=== PATIENT | female | born 1955 | race Caucasian/White ===

== ENCOUNTER 2023-10-07 09:02 | Outpatient (REF) | payer OTHER, SELFPAY ==
[2023-10-07 09:25] LABS: MANUAL DIFF FLAG NO
[2023-10-07 09:54] LABS: Basophils Percent Auto 0.7 % (0-2); Eosinophils Absolute Auto 0.2 X10*3/uL (0.0-0.4); Eosinophils Percent Auto 3.4 % (0-4); Hematocrit 41.7 % (37.0-47.0); Imm Gran Abs Auto 0.02 X10*3/uL (0.00-0.03); Imm Gran Pct Auto 0.3 % (0.0-0.4); Lymphocytes Absolute Auto 1.4 X10*3/uL (1.2-4.9); Lymphocytes Percent Auto 23.5 % (20-40); Mean Corpuscular HGB Conc 33.6 g/dl (31.0-35.0); Mean Corpuscular Hemoglobin 29.4 pg (27.0-33.0); Mean Corpuscular Volume 87.6 fL (80.0-98.0); Mean Platelet Volume 10.4 fL (9.4-12.3); Monocytes Absolute Auto 0.5 X10*3/uL (0.1-1.2); Monocytes Percent Auto 8.8 % (2-11); Neutrophils Absolute Auto 3.7 x10*3/uL (2.0-8.3); Neutrophils Percent Auto 63.3 % (45-73); Platelet Count 223 X10*3/uL (160-400); Red Blood Count 4.76 X10*6/uL (4.20-5.50); Red Cell Distribution Width 13.2 % (11.0-16.0); White Blood Count 5.8 X10*3/uL (4.8-10.8)
[2023-10-07 10:52] LABS: Alanine Aminotransferase 19 U/L (0-31); Anion Gap 9 (12-20); Aspartate Amino Transferase 18 U/L (5-31); Blood Urea Nitrogen 12 mg/dL (9-16); Calcium 9.5 mg/dL (8.4-10.2); Carbon Dioxide 31 mmol/L (22-29); Chloride 106 mmol/L (96-108); Cholesterol 214 mg/dL (<200); Estimated Glomerular Filt Rate > 60; Glucose Random 94 mg/dL (60-115); HDL Cholesterol 76 mg/dL (>40); LDL Cholesterol Calculated 122 mg/dL (<100); Potassium 3.5 mmol/L (3.3-5.1); Sodium 142 mmol/L (135-145); Triglycerides 84 mg/dL (<150)
[2023-10-07 10:55] LABS: TSH reflex Free T4 0.51 uIU/mL (0.32-4.0); Vitamin D 25-OH Total 14.5 ng/mL (>30)
== END 2023-10-07 09:03 | disposition home or self-care (01) ==
LOC: HO.LAB 09:02
PROVIDERS: PCP Nurse Practitioner Family; Visit Provider Nurse Practitioner Family
DX: Z00.00 Encounter for general adult medical examination without abnormal findings (principal); E55.9 Vitamin D deficiency, unspecified; G43.909 Migraine, unspecified, not intractable, without status migrainosus; R73.01 Impaired fasting glucose
CPT/HCPCS: 36415; 80048; 80061; 82306; 84443; 84450; 84460; 85025

== ENCOUNTER 2024-11-05 09:54 | Outpatient (REF) | payer OTHER, SELFPAY ==
--- NOTE | ~2024-11-05 | US_ITS ---
CLINICAL HISTORY: LEFT SIDE - NECK MASS US neck nonvascular Comparison: None Findings: Ultrasound evaluation of the area of clinical concern left neck demonstrates bulbous cervical level II level lymph nodes with mild cortical thickening without cortical disruption. Both demonstrate central flow with fatty hilum each measuring 11 x 6 x 10 mm and 10 x 3 x 7 mm. Impression: Probable reactive cervical lymph nodes on the left in the area of clinical concern can be followed up until resolution This document has been electronically signed by: Skip Kwan MD on 11/06/2024 15:35:55
--- OUTSIDE RECORDS SUMMARY | 2024-11-05 11:01 | XMS_ITS | Patient Health Record ---
Author Organization [facility] chencho [place] Address [address] [place] [address] Care Team Providers Care Orchard Worker Name Role Phone Marilynn STERN, Jessica Primary Care Provider Santana Blakely Unavailable [phone] Allergies Allergen (clinical drug ingredient) Drug/Non Drug Allergy documented on EMR Reaction Allergy Type Onset Date Status amoxicillin Amoxicillin rash Drug Allergy Act ankit morphine Morphine vomiting Drug Allergy Active Reason For Referral No Information Medications Medication SIG (Take, Route, Fr equency, Duration) Notes Start Date End Date Status Ciclopirox 0.77 % 1 application Merchandise Presentation Manager ally Twice a day; Duration: 365 days Active Social History Tobacco Use: Social History Observation Description Date Details (start date - stop date) Never Smoker NA - NA Tobacco Use/Smoking Question Answer Notes Are you a: nonsmoker Alcohol Screen Question Answer Notes Did you have a drink contain ing alcohol in the past year? Yes How often did you have a dri nk containing alcohol in the past year? Monthly or less (1 point) Points 1 Interpretation Negative Tobacco use other than smoking: Question Answer Notes Are you an other tobacco user? No Problems Problem Type SNOMED Code ICD Code Onset Dates Problem Status W/U Status Risk Notes Problem Fungal infection of nail (288588953) Fungal infection of nail (B35.1) Active confirmed Rx management (4) Plan Of Treatment No Information Insurance Providers Payer Name Payer Address Payer Phone Subscriber Number Group Number Insured Name Patient Relationship to Insured Coverage Start Date Coverage End Date Blue Benefits [address] [address] [place] [address] [phone] [id number] Sana Saeed Self - patient is the insured Medical (General) History Medical History History ICD Code Arthritis Back,Hip,and Knee pain covid-19 Headaches/Migraines Sciatica Surgical History Surgery Date(Month/Year) 1989
--- OUTSIDE RECORDS SUMMARY | 2024-11-05 11:01 | XMS_ITS | Encounter Summary ---
Author Organization [facility] Address [address] [place] [address] Care Team Providers Care Infectious Disease Technician Name Role Phone Unavailable Primary Care Provider Unavailabl e Encounter Details Date Type Department Care Team (Latest Contact Info) Description 07/01/2024 Lab Requisition [facility] [address] [facility] [place] [address] Estefania Curtis MD [address] [address] Encounter for gynecological examination (general) (routine) without abnormal findings Social History Tobacco Use Types Packs/Day Years Used Date Smoking Tobacco: Never Assessed Comments Unknown Sex and Gender Information Value Date Recorded Sex Assigned at Not on file Legal Sex Female 5:35 PM EST Gender Identity Not on file Sexual Orientation Not on file documented as of this encounter Plan of Treatment Not on file documented as of this encounter Procedures Procedure Name Priority Date/Time Associated Diagnosis Comments PAP SMEAR Routine 06/30/2024 12:00 AM EDT Encounter for gynecological examination (general) (routine) without abnormal findings documented in this encounter Results * Pap smear (06/30/2024 12:00 AM EDT) Interpretation Negative for intraepithelial lesion or malignancy 07/05/2024 6:54 PM EDT [facility] General Categorization Negative 07/05/2024 6:54 PM EDT [facility] Other Findings Atrophy 07/05/2024 6:54 PM EDT [facility] Specimen Adequacy Satisfactory for evaluation 07/05/2024 6:54 PM EDT [facility] Pap Methodology Liquid Based Pap Test 07/05/2024 6:54 PM EDT [facility] Disclaimer The Pap test is a screening test which carries an inherent false negative rate. These test results should be correlated with the patient's clinical findings and history. This Pap test was processed using an automated screening system. Technical cytopathology services provided by [facility], at [address] [place] [address] (CLIA # [id number]/Marily Awad MD, Anvil Seating Press Operator.) 07/05/2024 6:54 PM EDT [facility] Console Pap Interpretation Reported 07/05/2024 6:54 PM T [facility] Brushing/Spatula Cervix uteri structure / Unknown 06/30/2024 07/01/2024 5:59 AM EDT us Estefania Curtis MD LAB CYTOLOGY ORDERABLES Final Result [facility] [address] [place] [address], [place] [phone] documented in this encounter Visit Diagnoses Diagnosis Encounter for gynecological examination (general) (routine) without abnormal findings documented in this encounter
--- OUTSIDE RECORDS SUMMARY | 2024-11-05 11:01 | XMS_ITS | Clinical Summary ---
Author Organization [address] Address [address] [place] [phone] Phone Care Team Providers Care City Alderman Name Role Phone Unavailable Primary Care Provider Unavailabl e Social History Tobacco Use Types Packs/Day Years Used Date Smoking Tobacco: Never Assessed Comments Unknown Sex and Gender Information Value Date Recorded Sex Assigned at Not on file Legal Sex Female 5:35 PM EST Gender Identity Not on file Sexual Orientation Not on file Plan of Treatment Health Maintenance Due Date Last Done Comments DTaP,Tdap,and Td Vaccines (1 - Tdap) 1976 Pneumococcal Vaccine: 50+ Years (1 of 1 - PCV) 09/27/2007 Zoster Vaccines (1 of 2) 09/27/2007 Colorectal Cancer Screening: Colonoscopy 01/12/2022 Hepatitis C Screening 01/12/2022 Osteoporosis Screening (Bone Density Screening) 01/12/2022 Social Influencers of Health Screening 01/12/2022 Falls Risk Assessment 2022 Depression Screening 02/11/2024 COVID-19 Vaccine ( - season) 2024 Influenza Vaccine (#1) 2024 Breast Cancer Screening 06/24/2025 06/25/19 24, 08/09/2021, 07/07/2020, Additional history exists RSV Immunization Adult Patients (1 - 1-dose 75+ series) 2032 HIB Vaccines Aged Out No longer eligi ble based on patient's age to complete this topic HPV Vaccines Aged Out No longer eligi ble based on patient's age to complete this topic Hepatitis A Vaccines Aged Out No long er eligible based on patient's age to complete this topic Hepatitis B Vaccines Aged Out No long er eligible based on patient's age to complete this topic IPV Vaccines Aged Out No longer eligi ble based on patient's age to complete this topic MMR Vaccines Aged Out No longer eligi ble based on patient's age to complete this topic Meningococcal ACWY Vaccine Aged Out N o longer eligible based on patient's age to complete this topic Meningococcal B Vaccine Aged Out No l onger eligible based on patient's age to complete this topic RSV Immunization Patients Under 20 months Aged Out No longer eligible based on patient's age to complete this topic Varicella Vaccines Aged Out No longer eligible based on patient's age to complete this topic Procedures Procedure Name Priority Date/Time Associated Diagnosis Comments [facility] SCREENING DIGITAL Routine 06/25/2023 4:33 PM EDT Encounter for screening mammogram for malignant neoplasm of breast from Last 3 Months or Most Recently Relevant to Health Maintenance Results * [facility] SCREENING DIGITAL (06/25/2023 4:33 PM EDT) Anatomical Region Laterality Modality Mammography 06/25/2023 9:08 AM EDT Narrative 06/25/2023 4:33 PM EDT [facility] Diagnostic Imaging Department [address] [place] [address] Patient: SUKI SAEED D.O.B./Age/Sex: 1955 - 67 - F Unit#: [id number] Location/Status: [facility]/REG CLI Mnemonic/Ordering Site: [facility] Ordering Physician: JESSICA SUBRAMANIAN FISH MACHINE FEEDER [facility] Screening Digital - 06/25/[address] Report Status:Signed EXAM: [facility] Screening Digital EXAM DATE AND TIME: 06/25/2023 9:25 AM HISTORY: Screening. Mother had breast carcinoma at age 75. COMPARISON: 08/09/21, 07/07/20, 06/10/18 TECHNIQUE: Bilateral digital breast tomosynthesis was performed in the CC and MLO projections. Computer aided detection with Kanbanize 3D 3.1 was employed. TISSUE DENSITY: b. There are scattered areas of fibroglandular density. FINDINGS: No suspicious masses, grouped microcalcifications, or areas of architectural distortion are seen. The skin and vascularity are unremarkable. IMPRESSION: Stable mammographic appearance of the breasts. No evidence of malignancy is seen. A negative mammogram in the presence of a clinically suspicious palpable abnormality does not preclude the possibility of malignancy or alter the indications for biopsy. BI-RADS: Category 1: Negative RECOMMENDATION(S): 1: Routine screening mammogram BILATERAL in 1 year. Dictating Physician: MALINDA TURNER MD Electronically Signed by: MALINDA TURNER MD Dic Date/Time: 06/25/23 1633 Sign date/Time: 06/25/23 1633 Procedure Note Malinda Turner MD - 09/29/2023 [facility] Diagnostic Imaging Department [address] [place] [address] Patient: SUKI SAEED./Age/Sex: 1955 - 67 - F Unit#: [id number] Location/Status: [facility] Mnemonic/Ordering Site: [facility] Ordering Physician: JESSICA SUBRAMANIAN FISH MACHINE FEEDER [facility] Screening Digital - 06/25/23 - 923 Report Status:Signed EXAM: [facility] Screening Digital EXAM DATE AND TIME: 06/25/2023 9:25 AM HISTORY: Screening. Mother had breast carcinoma at age 75. COMPARISON: 08/09/21, 07/07/20, 06/10/18 TECHNIQUE: Bilateral digital breast tomosynthesis was performed in the CCand MLO projections. Computer aided detection with Kanbanize 3D 3.1was employed. TISSUE DENSITY: b. There are scattered areas of fibroglandular density. FINDINGS: No suspicious masses, grouped microcalcifications, or areas ofarchitectural distortion are seen. The skin and vascularity are unremarkable. IMPRESSION: Stable mammographic appearance of the breasts. No evidence of malignancyis seen. A negative mammogram in the presence of a clinically suspicious palpable abnormality does not preclude the possibility of malignancy or alter the indications for biopsy. BI-RADS: Category 1: Negative RECOMMENDATION(S): 1: Routine screening mammogram BILATERAL in 1 year. Dictating Physician: MALINDA TURNER MD Electronically Signed by: MALINDA TURNER MD Dic Date/Time: 06/25/23 1633 Sign date/Time: 06/25/23 1633 Jessica Subramanian NP IMG BI PROCEDURES Final Resul t from Last 3 Months or Most Recently Relevant to Health Maintenance Insurance [employer]ORS [facility]
== END 2024-11-05 09:55 | disposition home or self-care (01) ==
LOC: HO.HMGCX 09:54
PROVIDERS: PCP Nurse Practitioner Family; Visit Provider Nurse Practitioner Family
DX: R59.0 Localized enlarged lymph nodes (principal); M50.30 Other cervical disc degeneration, unspecified cervical region
CPT/HCPCS: 76536

== ENCOUNTER → 2024-11-05 09:56 | Outpatient (BNV) | payer OTHER, SELFPAY | PROVIDERS: PCP Nurse Practitioner Family; Visit Provider Radiology Diagnostic Radiology | DX: R22.1 Localized swelling, mass and lump, neck (principal) | CPT/HCPCS: 76536 ==

== ENCOUNTER → 2024-11-19 13:01 | Outpatient (REF) | payer OTHER, SELFPAY ==
--- NOTE | 2024-11-19 13:04 | CA_ITS ---
Transthoracic Echocardiogram Patient (Last, First, Middle): Sana Saeed, Gender: F Date of : 1955 Age: 69 Procedure Date: 11/19/2024 Procedure Type: Transthoracic Echocardiogram Location: OP Height: 162.56 cm Weight: 68.95 kg BSA: 1.74 m2 Heart Rate: bpm BP: 132 / 80 mmHg Retail Service Specialist: NADIA Referring MD: Jessica SIMON Medical Director Of Hospice: Herberth Mott MD Symptoms: PALPITATIONS Study Quality: Adequate ECG Rhythm: Sinus Conclusions: - 1. Normal LV ejection fraction of 55-60% with mild LVH with grade 1 diastolic dysfunction 2. Normal cardiac valvular Dopplers 3. Upper limits of normal ascending aortic size 4. No gross pericardial effusion Findings Left Ventricle Normal left ventricular size and systolic function. There is mildly increased left ventricular wall thickness. The visually estimated ejection fraction is between 55-60%. Spectral Doppler is indicative of an impaired relaxation filling pattern. E/E prime ratio is <8, consistent with normal filling pressures. Evidence suggests grade I (mild) diastolic dysfunction. Right Ventricle Normal right ventricular cavity size and systolic function. Atria Both atria are normal in size. There is no evidence of interatrial shunt. Aortic Valve Normal aortic valve structure and function. There is no aortic valve stenosis. There is no aortic valve regurgitation. Mitral Valve Normal mitral valve structure and function. There is trace mitral valve regurgitation. There is no mitral valve stenosis. Pulmonic Valve The pulmonic valve is likely normal. There is trace pulmonic valve regurgitation. Tricuspid Valve Normal tricuspid valve structure. Tricuspid regurgitation envelope is inadequate for calculation of right ventricular systolic pressure. Normal right atrial pressure. Great Vessels The pulmonary artery was not well visualized. There is no dilatation of the ascending aorta measuring 3.50 cm. Venous The inferior vena cava is normal in size and collapses greater than 50% with inspiration. Pericardium/Pleural There is no evidence of pericardial effusion. Prior Study Comparison No prior study available for comparison. Measurements 2D Linear Measurements IVSd: 1.22 0.6-0.9/0.6-1.0 cm LVIDd: 4.61 3.9-5.3/4.2-5.9 cm LVIDd Index: 2.65 2.4-3.2/2.2-3.1 cm/m2 LVIDs: 2.80 2.0-3.6 cm LVPWd: 1.21 0.7-1.1 cm Ao Root: 3.00 2.1-3.5 cm LA Diam: 3.50 2.7-3.8/3.0-4.0 cm LAIDs Index: 2.01 1.5-2.3 cm/m2 LV Mass: 260.98 67-162/88-224 g LV Mass Index: 149.99 43-95/49-115 g/m2 LVOT Diam: 2.40 3.0+(-)1.3 cm 2D Systolic Function EF 4C: 55.40 >55% EF 2C: 60.80 >55% EF BiP: 58.60 >55% Mitral Valve MV Pk E: 0.51 MV PK A: 0.69 MV Decel Time: 338.00 E/A: 0.70 E'Lateral: 5.98 E'Medial: 4.03 E/E' Med: 12.80 E/E' Lat: 8.60 PHT: 99.00 MVA PHT: 2.22 Decel Crawford: 1.52 Aortic Valve AoV Pk Jimmy: 1.23 AoV Mn Jimmy: 0.80 AoV VTI: 0.30 AoV Pk Grad: 6.00 Aov Mn Grad: 3.00 GEGE Cont.VTI: 3.25 LVOT LVOT Pk Jimmy: 0.86 LVOT Mn Jimmy: 0.56 LVOT VTI: 0.21 LVOT Pk Grad: 3.00 LVOT Mn Grad: 2.00 LVOT Diam: 2.40 LVOT Area: 4.52 Diastolic Function MV Pk E: 0.51 MV Pk A: 0.69 E/A: 0.70 E'Medial: 4.03 E/E' Med: 12.80 E' Laterial: 5.98 E/E' Lat: 8.60 Right Ventricle TAPSE (mm): 32.30 TVS' Jimmy: 12.40 Tricuspid Valve TR Pk Jimmy: 2.26 TR Pk Grad: 20.00 Great Vessels Aorta Ao Root-2D: 3.00 2.0-3.7 cm Ao Asc: 3.50 2.1-3.4 cm Pulmonary Veins Pulm Vein S/D 0.70 Pulmonary Valve PV Pk Jimmy: 0.93 Peak PV Grad: 3.00 Updated in Other Vendor System with Status of Final Herberth Mott MD electronically signed on 11/19/2024 2:53:28 PM with status of Final
== END ==
LOC: HO.CARD 13:01
PROVIDERS: PCP Nurse Practitioner Family; Visit Provider Nurse Practitioner Family
DX: R00.2 Palpitations (principal)
CPT/HCPCS: 93246; 93306

== ENCOUNTER → 2024-11-19 13:04 | Outpatient (BNV) | payer OTHER, SELFPAY | PROVIDERS: PCP Nurse Practitioner Family; Visit Provider Internal Medicine Cardiovascular Disease | DX: I51.89 Other ill-defined heart diseases (principal); R00.2 Palpitations | CPT/HCPCS: 93306 ==

== ENCOUNTER → 2024-12-09 11:14 | Outpatient (REF) | payer OTHER, SELFPAY ==
--- NOTE | 2024-12-09 11:17 | CA_ITS ---
Acquisition Time: 2024-12-09 11:25:13 Total Exercise Time: 00:05:31 Test Indications: SOB Medications: SEE H&P Protocol: YOUSIF Max HR: 166 BPM 108% of Pred: 153 BPM Max BP: 190/90 mmHG Max Work Load: 7.0 METS Exercise stress test with exrcise 5 mins 31 secs of Yousif Protocol, achieving 100% MPHR, with reports of SOB, no chest pain, with frequent PACs, with normotensive response to exercise. Without any EKG changes meeting criteria for ischemia. In recovery, breathing slowly improved to baseline. Echo images obtained by tech and post peak exercise. Definity contrast utilized. Test reviewed with Dr. Pederson. Referred By: Jessica Subramanian Electronically Signed By: Morgan Sousa
--- OUTSIDE RECORDS SUMMARY | 2024-12-09 14:04 | XMS_ITS | Patient Health Record ---
Author Organization [facility] chencho [place] Address [address] [place] [address] Care Team Providers Care Structured Cabling Technician Name Role Phone Marilynn SETRN, Jessica Primary Care Provider Santana Blakely Unavailable [phone] Allergies Allergen (clinical drug ingredient) Drug/Non Drug Allergy documented on EMR Reaction Allergy Type Onset Date Status amoxicillin Amoxicillin rash Drug Allergy Act ankit morphine Morphine vomiting Drug Allergy Active Reason For Referral No Information Medications Medication SIG (Take, Route, Fr equency, Duration) Notes Start Date End Date Status Ciclopirox 0.77 % 1 application Heel Lift Gouger ally Twice a day; Duration: 365 days [...] Risk Notes Problem Fungal infection of nail (171798969) Fungal infection of nail (B35.1) Active confirmed Rx management (4) Plan Of Treatment No Information Insurance Providers Payer Name Payer Address Payer Phone Subscriber Number Group Number Insured Name Patient Relationship to Insured Coverage Start Date Coverage End Date Blue Benefits [address] [address] [place] [address] [id number] Sana Saeed Self - patient is the insured Medical (General) History Medical History History ICD Code Arthritis Back,Hip,and Knee pain covid-19 Headaches/Migraines Sciatica Surgical History Surgery Date(Month/Year) 1989
== END ==
LOC: HO.CARD 11:14
PROVIDERS: PCP Nurse Practitioner Family; Visit Provider Nurse Practitioner Family
DX: R06.02 Shortness of breath (principal)
CPT/HCPCS: 93350; Q9957

== ENCOUNTER → 2024-12-09 11:17 | Outpatient (BNV) | payer OTHER, SELFPAY | PROVIDERS: PCP Nurse Practitioner Family | DX: R94.31 Abnormal electrocardiogram [ECG] [EKG] (principal); I49.1 Atrial premature depolarization; R06.02 Shortness of breath | CPT/HCPCS: 93016; 93018; 93350; 93352 ==

== ENCOUNTER 2024-12-13 08:27 | Outpatient (REF) | payer OTHER, SELFPAY ==
--- NOTE | ~2024-12-13 | XR_ITS ---
EXAMINATION: XR CHEST CLINICAL INFORMATION: BACK PAIN COMPARISON: None available. TECHNIQUE: 2 views of the chest were obtained. FINDINGS: No significant abnormality is noted involving the heart, lungs, mediastinum, bony thorax or soft tissues. XR/XR chest 2V IMPRESSION: No acute disease Electronically signed by: Sheldon Van MD 12/13/2024 09:56 AM [facility]
--- NOTE | ~2024-12-13 | XR_ITS ---
EXAMINATION: XR THORACIC SPINE CLINICAL INFORMATION: PAIN COMPARISON: None available. TECHNIQUE: 2 views of the thoracic spine were obtained. FINDINGS: There is mild levoscoliosis measuring 10 degrees. There are mild degenerative changes in the upper thoracic spine with mild disc space narrowing and anterior osteophytes. XR/XR thoracic spine 3V IMPRESSION: Mild levoscoliosis and mild degenerative disc disease in the upper thoracic spine. Electronically signed by: Sheldon Van MD 12/13/2024 09:57 AM [facility]
--- NOTE | ~2024-12-13 | XR_ITS ---
EXAMINATION: XR CERVICAL SPINE TECHNIQUE: AP, lateral, and AP open-mouth odontoid views of the cervical spine INDICATION: Neck pain PRIOR: None FINDINGS: There is straightening of the cervical lordosis. There is no prevertebral soft tissue swelling. C3-4 demonstrates minimal disc space narrowing. C4-5 demonstrates moderate disc space narrowing with endplate sclerosis and anterior endplate and uncovertebral osteophytes. There is grade 1 retrolisthesis. C5-6 demonstrates moderate disc space narrowing, endplate sclerosis, and endplate and uncovertebral osteophytes. Disc spaces are preserved otherwise. XR/XR cervical spine 3V IMPRESSION: There is straightening of the expected cervical lordosis. This can be idiopathic, but can also be related to degenerative change, muscle spasm, or posterior soft tissue injury. Degenerative disc disease is most pronounced at C4-5 and C5-6. Electronically signed by: Sheldon Van MD 12/13/2024 09:59 AM [facility]
--- OUTSIDE RECORDS SUMMARY | 2024-12-13 08:50 | XMS_ITS | Clinical Summary ---
Author Organization [address] Address [address] [place] [address] Phone Care Team Providers Care Scrap Drop Operator Name Role Phone Jessica Subramanian NP Primary Care Provider [phone] Allergies Active Allergy Reactions Criticality Noted Date Comments Amoxicillin 12/06/2024 Penicillin G 12/06/2024 Medications No known medications Encounters Date Type Department Care Team Description 11/29/2024 Telephone Gastroenterology - [address] [phone] Augustine Wells MD from Last 3 Months Social History Tobacco Use Types Packs/Day Years Used Date Smoking Tobacco: Never Assessed Comments Unknown Sex and Gender Information Value Date Recorded Sex Assigned at Not on file Legal Sex Female 5:35 PM EST Gender Identity Not on file Sexual Orientation Not on file Plan of Treatment Health Maintenance Due Date Last Done Comments Colorectal Cancer Screening: Colonoscopy 1955 DTaP,Tdap,and Td Vaccines (1 - Tdap) 1976 Pneumococcal Vaccine: 50+ Years (1 of 1 - PCV) 09/27/2007 Zoster Vaccines (1 of 2) 09/27/2007 Hepatitis C Screening 01/12/2022 Osteoporosis Screening (Bone Density Screening) 01/12/2022 Social Influencers of Health Screening 01/12/2022 Falls Risk Assessment 2022 Depression Screening 02/11/2024 COVID-19 Vaccine ( season) 2024 Influenza Vaccine (#1) 2024 Breast [...] Procedure Name Priority Date/Time Associated Diagnosis Comments [facility] SCREENING DIGITAL Routine 06/25/2023 4:33 PM EDT Encounter for screening mammogram for malignant neoplasm of breast from Last 3 Months or Most Recently Relevant to Health Maintenance Results * [facility] SCREENING DIGITAL (06/25/2023 4:33 PM EDT) Anatomical Region Laterality Modality Mammography 06/25/2023 9:08 AM EDT Narrative 06/25/2023 4:33 PM EDT [facility] Diagnostic Imaging Department [address] [place], [place] [id number] Patient: SUKI SAEED./Age/Sex: 1955 - 67 - F Unit#: [id number] [facility]Ordering [facility] Ordering Physician: JESSICA SUBRAMANIAN TRANSITION SOCIAL WORKER [facility] Screening Digital - 06/25/23 - 923 Report Status:Signed EXAM: [facility] Screening Digital EXAM DATE AND TIME: 06/25/2023 9:25 AM HISTORY: Screening. Mother had breast carcinoma at age 75. COMPARISON: 08/09/21, 07/07/20, 06/10/18 TECHNIQUE: Bilateral digital breast tomosynthesis was performed in the CC and MLO projections. Computer aided detection with Smash Bucket 3D 3.1 was employed. TISSUE DENSITY: b. [...] Signed by: MALINDA TURNER MD Dic Date/Time: 06/25/231632 Sign date/Time: 06/25/23 1633 Procedure Note Malinda Turner MD - 09/29/2023 [facility] Diagnostic Imaging Department [address] [place] [address] Patient: HALOscarSUKI /Age/Sex: 1955 - 67 - F Unit#: [id number] Location/Status: [facility]REG CLI Mnemonic/Ordering Site: [facility] Ordering Physician: JESSICA SUBRAMANIAN NP [facility] Screening Digital - 06/25/23 - 923 Report Status:Signed EXAM: [facility] Screening Digital EXAM DATE AND TIME: 06/25/2023 9:25 AM HISTORY: Screening. Mother had breast carcinoma at age 75. COMPARISON: 08/09/21, 07/07/20, 06/10/18 TECHNIQUE: Bilateral digital breast tomosynthesis was performed in the CCand MLO projections. Computer aided detection with Smash Bucket 3D 3.1was employed. TISSUE DENSITY: b. There [...] Most Recently Relevant to Health Maintenance Insurance [employer] [facility] Care Teams Scrap Drop Operator Relationship Specialty Start Date End Date Jessica Subramanian NP [address] [place] [address] PCP - General Internal Medicine 11/29/24
--- OUTSIDE RECORDS SUMMARY | 2024-12-13 08:50 | XMS_ITS | Encounter Summary ---
Author Organization [facility] [address] Address [address] [place] [address] Care Team Providers Care Lathe Winder Name Role Phone [place]Jessica pope JARRED Primary Care Provider [phone] Encounter Details Date Type Department Care Team (Latest Contact Info) Description 07/01/2024 Lab Requisition [facility] - Main Lab [address] [place] [address] Estefania Curtis MD [address] [phone] Encounter for gynecological examination (general) (routine) without [...] lesion or malignancy 07/05/2024 6:54 PM EDT [facility] General Categorization Negative 07/05/2024 6:54 PM EDT [facility] Other Findings Atrophy 07/05/2024 6:54 PM [facility] Specimen Adequacy Satisfactory for evaluation 07/05/2024 6:54 PM EDT [facility] Pap Methodology Liquid Based Pap Test 07/05/2024 6:54 PM EDT [facility] Disclaimer The Pap test is a screening test which carries an inherent false negative rate. These test results should be correlated with the patient's clinical findings and history. This Pap test was processed using an automated screening system. Technical cytopathology services provided by [facility], at [address] [place] [address] (CLIA # [id number]/Marily Awad MD, Senior Adults Director.) 07/05/2024 6:54 PM EDT [facility] Console Pap Interpretation Reported 07/05/2024 6:54 PM [facility] Brushing/Spatula Cervix uteri structure / Unknown 06/30/2024 07/01/2024 5:59 AM EDT us Estefania Curtis MD LAB CYTOLOGY ORDERABLES Final Result Performing Organization Address City/State/[facility] Co de Phone Number [facility] [address] [place] [address], documented in this encounter Visit Diagnoses Diagnosis Encounter for gynecological examination (general) (routine) without abnormal findings documented in this encounter Care Teams Lathe Winder Relationship Specialty Start Date End Date Jessica Subramanian NP [address] [facility] [place] [address] PCP - General Internal Medicine 11/29/24 documented as of this encounter
--- OUTSIDE RECORDS SUMMARY | 2024-12-13 08:50 | XMS_ITS | Patient Health Record ---
Author Organization [facility] [place] Address [address] [place] [address] Care Team Providers Care Chief Librarian Branch Or Department Name Role Phone Marilynn STERN, Jessica Primary Care Provider Santana Blakely Unavailable [phone] Allergies Allergen (clinical drug ingredient) Drug/Non Drug Allergy documented on EMR Reaction Allergy Type Onset Date Status amoxicillin Amoxicillin rash Drug Allergy Act ankit morphine Morphine vomiting Drug Allergy Active Reason For Referral No Information Medications Medication SIG (Take, Route, Fr equency, Duration) Notes Start Date End Date Status Ciclopirox 0.77 % 1 application Technical Training Coordinator ally Twice a day; Duration: 365 days [...] Risk Notes Problem Fungal infection of nail (352473388) Fungal infection of nail (B35.1) Active confirmed Rx management (4) Plan Of Treatment No Information Insurance Providers Payer Name Payer Address Payer Phone Subscriber Number Group Number Insured Name Patient Relationship to Insured Coverage Start Date Coverage End Date Blue Benefits [address] [address] [place] [address] [id number] Sana Saeed Self - patient is the insured Medical (General) History Medical History History ICD Code Arthritis Back,Hip,and Knee pain covid-19 Headaches/Migraines Sciatica Surgical History Surgery Date(Month/Year) 1989
[2024-12-13 09:12] LABS: MANUAL DIFF FLAG NO
[2024-12-13 09:41] LABS: Hematocrit 43.0 % (37.0-47.0); Hemoglobin 13.9 g/dl (12.0-16.0); Imm Gran Abs Auto 0.01 X10*3/uL (0.00-0.03); Imm Gran Pct Auto 0.2 % (0.0-0.4); Lymphocytes Absolute Auto 1.5 X10*3/uL (1.2-4.9); Mean Corpuscular HGB Conc 32.3 g/dl (31.0-35.0); Mean Corpuscular Hemoglobin 28.6 pg (27.0-33.0); Mean Corpuscular Volume 88.5 fL (80.0-98.0); NRBC Abs Auto 0.000 X10*3/uL (0.0-0.012); NRBC Pct Auto 0.0 /100WBC (0.0-0.2); Platelet Count 238 X10*3/uL (160-400); Red Blood Count 4.86 X10*6/uL (4.20-5.50); White Blood Count 5.5 X10*3/uL (4.8-10.8)
[2024-12-13 09:59] LABS: Total Hemoglobin (HGBA1C) 3623.7057 umol/L
[2024-12-13 10:01] LABS: Appearance Urine Clear; Glucose Urine UA Negative (Negative); PH >= 9.0 (5.0-9.0); Specific Gravity - Urine 1.015 (1.005-1.025); UMIC TRIGGER UACC YES
[2024-12-13 10:40] LABS: Microalbum/Creatinine Ratio Ur 42.6 ug/mg cr (<30)
[2024-12-13 10:51] LABS: Anion Gap 9 (12-20); Aspartate Amino Transferase 38 U/L (5-31); Blood Urea Nitrogen 8 mg/dL (9-16); Calcium 8.9 mg/dL (8.4-10.2); Carbon Dioxide 28 mmol/L (22-29); Chloride 107 mmol/L (96-108); Cholesterol 198 mg/dL (<200); Estimated Glomerular Filt Rate > 60; HDL Cholesterol 66 mg/dL (>40); Iron 117 mcg/dL (30-160); Magnesium 1.9 mg/dL (1.6-2.6); Percent Iron Saturation 41 % (15-50); Potassium 4.0 mmol/L (3.3-5.1); Sodium 140 mmol/L (135-145); Total Iron Binding Capacity 284 mcg/dL (228-428); Triglycerides 78 mg/dL (<150); Unsaturated Iron Binding 167 ug/dL
[2024-12-13 11:40] LABS: Vitamin B12 290 pg/mL (200-900)
== END 2024-12-13 08:28 | disposition home or self-care (01) ==
LOC: HO.XRAY 08:27
PROVIDERS: PCP Nurse Practitioner Family; Visit Provider Nurse Practitioner Family
DX: Z00.00 Encounter for general adult medical examination without abnormal findings (principal); R31.9 Hematuria, unspecified; M54.6 Pain in thoracic spine; E55.9 Vitamin D deficiency, unspecified; G43.909 Migraine, unspecified, not intractable, without status migrainosus; R73.01 Impaired fasting glucose; M50.30 Other cervical disc degeneration, unspecified cervical region; R42 Dizziness and giddiness; R59.0 Localized enlarged lymph nodes; Z13.6 Encounter for screening for cardiovascular disorders
CPT/HCPCS: 36415; 71046; 72040; 72072; 80048; 80061; 81001; 81003; 82043; 82306; 82570; 82607; 83036; 83540; 83735; 84443; 84450; 85025

== ENCOUNTER → 2024-12-13 09:20 | Outpatient (BNV) | payer OTHER, SELFPAY | PROVIDERS: PCP Nurse Practitioner Family; Visit Provider Radiology Diagnostic Radiology | DX: M51.34 Other intervertebral disc degeneration, thoracic region (principal); M41.84 Other forms of scoliosis, thoracic region; M50.321 Other cervical disc degeneration at C4-C5 level; M41.02 Infantile idiopathic scoliosis, cervical region | CPT/HCPCS: 71046; 72040; 72072 ==

== ENCOUNTER 2025-01-24 13:31 | Outpatient (REF) | payer OTHER, SELFPAY ==
--- NOTE | ~2025-01-24 | US_ITS ---
EXAMINATION: US EXTRACRANIAL CAROTID DUPLEX, BILATERAL CLINICAL INFORMATION: Hypertension COMPARISON: None available. TECHNIQUE: Real-time ultrasound and Doppler techniques (integrating B-mode 2-D vascular images, Doppler spectral analysis and color-flow Doppler imaging) were utilized to interrogate the extracranial carotid arteries, the vertebral arteries and proximal subclavian arteries bilaterally. The degree of stenosis is determined by criteria similar to NASCET. FINDINGS: Right Side: 1. There is no atherosclerotic plaque seen in the bifurcation/proximal ICA region. 2. The common carotid artery PSV proximally is 96 cm/s and distally C5 cm/s. 3. The proximal internal carotid artery velocities are 53 cm/s systolic and 20 cm/s diastolic. 4. The proximal external carotid artery PSV is 86 cm/s. 5. The vertebral artery shows antegrade flow. 6. The subclavian artery waveforms are triphasic. ICA/CCA ratio = 0.55 Left Side: 1. There is no atherosclerotic plaque seen in the bifurcation/proximal ICA region. 2. The common carotid artery PSV proximally is 96 cm/s and distally 81 cm/s. 3. The proximal internal carotid artery velocities are 56 cm/s systolic and 21 cm/s diastolic. 4. The proximal external carotid artery PSV is 87 cm/s. 5. The vertebral artery shows antegrade flow. 6. The subclavian artery waveforms are triphasic. ICA/CCA ratio = 0.58 US/US carotid duplex BI IMPRESSION: 1. RIGHT: No hemodynamically significant stenosis 2. LEFT: No hemodynamically significant stenosis Electronically signed by: Sheldon Van MD 01/24/2025 02:32 PM [facility]
--- OUTSIDE RECORDS SUMMARY | 2025-01-24 19:41 | XMS_ITS | Encounter Summary ---
Author Organization [facility] Address [address] [place] [address] Care Team Providers Care Police Cadet Name Role Phone Jessica Subramanian JARRED Primary Care Provider [phone] Encounter Details Date Type Department Care Team (Latest Contact Info) Description 07/01/2024 Lab Requisition [facility] - Main Lab [address] [facility] [place] [address] Estefania Curtis MD 299 [facility] [address] [place] [phone] Encounter for gynecological examination (general) (routine) without abnormal findings Social History Tobacco Use Types Packs/Day Years Used Date Smoking Tobacco: Never Assessed Comments Unknown Sex and Gender Information Value Date Recorded Sex Assigned at Not on file Legal Sex Female 5:35 PM EST Gender Identity Not on file Sexual Orientation Not on file documented as of this encounter Plan of Treatment Upcoming Encounters Date Type Department Care Team (Late st Contact Info) Description 02/15/2025 1:00 PM EST Appointment [facility] Endoscopy [address] [place] [address] Augustine Wells MD 299 [facility] [address] [place], [place] [phone] documented as of this encounter Procedures Procedure Name Priority Date/Time Associated Diagnosis Comments PAP SMEAR Routine 06/30/2024 12:00 AM EDT Encounter for gynecological examination (general) (routine) without abnormal findings documented in this encounter Results * Pap smear (06/30/2024 12:00 AM EDT) Interpretation Negative for intraepithelial lesion or malignancy 07/05/2024 6:54 PM EDT [facility] at 1854 EDT General Categorization Negative 07/05/2024 6:54 PM EDT [facility] Other Findings Atrophy 07/05/2024 6:54 PM EDT [facility] Specimen Adequacy Satisfactory for evaluation 07/05/2024 6:54 PM EDT [facility] Pap Methodology Liquid Based Pap Test 07/05/2024 6:54 PM EDT [facility] Disclaimer The Pap test is a screening test which carries an inherent false negative rate. These test results should be correlated with the patient's clinical findings and history. This Pap test was processed using an automated screening system. Technical cytopathology services provided by [facility], at [address] [place] [address] (CLIA # [id number]/Marily Awad MD, Car Mover.) 07/05/2024 6:54 PM EDT [facility] Console Pap Interpretation Reported 07/05/2024 6:54 PM T [facility] Brushing/Spatula Cervix uteri structure / Unknown 06/30/2024 07/01/2024 5:59 AM EDT us Estefania Curtis MD LAB CYTOLOGY ORDERABLES Final Result [facility] [address] [place] [address], [place] [phone] documented in this encounter Visit Diagnoses Diagnosis Encounter for gynecological examination (general) (routine) without abnormal findings documented in this encounter Care Teams Police Cadet Relationship Specialty Start Date End Date Jessica Subramanian NP [address] [place] [address] PCP - General Internal Medicine 11/29/24 documented as of this encounter
--- OUTSIDE RECORDS SUMMARY | 2025-01-24 19:41 | XMS_ITS | Clinical Summary ---
Author Organization [address] Address [address] [place] [address] Phone Care Team Providers Care Service Specialist Name Role Phone Jessica Subramanian NP Primary Care Provider [phone] Allergies Active Allergy Reactions Criticality Noted Date Comments Amoxicillin 12/06/2024 Penicillin G 12/06/2024 Medications No known medications Encounters Date Type Department Care Team Description 11/29/2024 Telephone Gastroenterology - [address] [phone] Augustine Wells MD from Last 3 Months Social History Tobacco Use Types Packs/Day Years Used Date Smoking Tobacco: Never Assessed Comments Unknown Sex and Gender Information Value Date Recorded Sex Assigned at Not on file Legal Sex Female 5:35 PM EST Gender Identity Not on file Sexual Orientation Not on file Plan of Treatment Upcoming Encounters Date Type Department Care Team ([facility] Contact Info) Description 02/15/2025 1:00 PM EST Appointment [facility] Endoscopy [address] [place] [phone] Augustine Wells MD [address] [address] Health Maintenance Due Date Last Done Comments [...] on patient's age to complete this topic Goals Goal Patient Goal Type Associated Problems Recent Progress Patient-Stated? Author Autogenera minal Goal Care Plan Autogenerated Problem No Jackie Vazquez Procedures Procedure Name Priority Date/Time Associated Diagnosis Comments RAFIQ SCREENING DIGITAL Routine 06/25/2023 4:33 PM EDT Encounter for screening mammogram for malignant neoplasm of breast from Last 3 Months or Most Recently Relevant to Health Maintenance Results * RAFIQ SCREENING DIGITAL (06/25/2023 4:33 PM EDT) Anatomical Region Laterality Modality Mammography 06/25/2023 9:08 AM EDT Narrative 06/25/2023 4:33 PM EDT [facility] Diagnostic Imaging Department [address] [place] [address] Patient: SUKI SAEED /Age/Sex: 1955 - 67 - F Unit#: [id number] Location/Status: SPDIMAM/REG CLI Mnemonic/Ordering Site: [facility] Ordering Physician: JESSICA SUBRAMANIAN COCONUT COOKER [facility] Screening Digital - 06/25/23 - 24 Report Status:Signed EXAM: [facility] Screening Digital EXAM DATE AND TIME: 06/25/2023 9:25 AM HISTORY: Screening. Mother had breast carcinoma at age 75. COMPARISON: 08/09/21, 07/07/20, 06/10/18 TECHNIQUE: Bilateral digital breast tomosynthesis was performed in the CC and MLO projections. Computer aided detection with IID 3D 3.1 was employed. TISSUE DENSITY: b. [...] Procedure Note Malinda Turner MD - 09/29/2023 [facility] Diagnostic Imaging Department [address] [place] [id number] Patient: SUKI SAEED /Age/Sex: 1955 - 67 - F Unit#: [id number] [facility]Ordering [facility] Ordering Physician: JESSICA SUBRAMANIAN COCONUT COOKER [facility] Screening Digital - 06/25/23 - 923 Report Status:Signed EXAM: [facility] Screening Digital EXAM DATE AND TIME: 06/25/2023 9:25 AM HISTORY: Screening. Mother had breast carcinoma at age 75. COMPARISON: 08/09/21, 07/07/20, 06/10/18 TECHNIQUE: Bilateral digital breast tomosynthesis was performed in the CCand MLO projections. Computer aided detection with IID 3D 3.1was employed. TISSUE DENSITY: b. There [...] or Most Recently Relevant to Health Maintenance Additional Health Concerns Active Problems Noted Date Diagnosed Date Autogenerated Problem 12/23/2024 Insurance [employer] [facility] Care Teams Service Specialist Relationship Specialty Start Date End Date Jessica Subram[place] [address] PCP - General Internal Medicine 11/29/24
--- OUTSIDE RECORDS SUMMARY | 2025-01-24 19:41 | XMS_ITS | Patient Health Record ---
Author Organization [facility] [place] Address [address] [place] [address] Care Team Providers Care Train Master Name Role Phone Marilynn STERN, Jessica Primary Care Provider Santana Blakely Unavailable [phone] Allergies Allergen (clinical drug ingredient) Drug/Non Drug Allergy documented on EMR Reaction Allergy Type Onset Date Status amoxicillin Amoxicillin rash Drug Allergy Act ankit morphine Morphine vomiting Drug Allergy Active Reason For Referral No Information Medications Medication SIG (Take, Route, Fr equency, Duration) Notes Start Date End Date Status Ciclopirox 0.77 % 1 application Retail Selling Specialist ally Twice a day; Duration: 365 days [...] Risk Notes Problem Fungal infection of nail ([id number]) Fungal infection of nail (B35.1) Active confirmed Rx management (4) Plan Of Treatment No Information Insurance Providers Payer Name Payer Address Payer Phone Subscriber Number Group Number Insured Name Patient Relationship to Insured Coverage Start Date Coverage End Date Blue Benefits [address] [address] [place] [address] [id number] Sana Saeed Self - patient is the insured Medical (General) History Medical History History ICD Code Arthritis Back,Hip,and Knee pain covid-19 Headaches/Migraines Sciatica Surgical History Surgery Date(Month/Year) 1989
== END 2025-01-24 13:32 | disposition home or self-care (01) ==
LOC: HO.US 13:31
PROVIDERS: PCP Nurse Practitioner Family; Visit Provider Nurse Practitioner Family
DX: M54.6 Pain in thoracic spine (principal); R31.9 Hematuria, unspecified; M54.2 Cervicalgia; I10 Essential (primary) hypertension; R59.0 Localized enlarged lymph nodes
CPT/HCPCS: 93880

== ENCOUNTER → 2025-01-24 13:46 | Outpatient (BNV) | payer OTHER, SELFPAY | PROVIDERS: PCP Nurse Practitioner Family; Visit Provider Radiology Diagnostic Radiology | DX: I10 Essential (primary) hypertension (principal) | CPT/HCPCS: 93880 ==

== ENCOUNTER 2025-01-25 11:31 | Outpatient (REF) | payer OTHER, SELFPAY ==
--- NOTE | ~2025-01-25 | US_ITS ---
EXAMINATION: US RETROPERITONEUM HISTORY: LEFT MID BACK PAIN, HX OF HEMATOMA, HEMATURIA, PAIN IN THORACIC SPINE TECHNIQUE: Real-time grayscale ultrasound imaging of the kidneys was performed and images were reviewed. COMPARISON: There are no prior studies available for comparison. FINDINGS: Right kidney: The right kidney measures 11.1 x 4.9 x 4.9 cm. Renal parenchymal echotexture and thickness are normal. There is a 7 mm cyst at the lower pole demonstrating wall calcification. There is slight fullness of the renal pelvis There is no hydronephrosis or renal calculi. Left Kidney: The left kidney measures 11.4 x 6.7 x 5.2 cm. Renal parenchymal echotexture and thickness are normal. There are no masses. There is no hydronephrosis or renal calculi. The urinary bladder is unremarkable. Bilateral ureteral jets are identified. Before voiding, the urinary bladder measured 11.6 x 7.4 x 9.3 cm, for an estimated volume of 417 mL. After voiding, the urinary bladder measured 3.6 x 3.9 x 5.2 cm, for an estimated volume of 38 mL. US/US retroperitoneal comp IMPRESSION: 1. 7 mm right lower pole renal cyst containing calcification. Follow-up is suggested. 2. Slight fullness of the right renal pelvis without hydronephrosis. 3. Post void bladder residual of 38 mL. Electronically signed by: Olayinka Valladares MD 01/25/2025 12:13 PM [facility]
--- OUTSIDE RECORDS SUMMARY | 2025-01-25 15:14 | XMS_ITS | Clinical Summary ---
Author Organization [address] Address [address] [place] [address] Phone Care Team Providers Care Hoist Worker Name Role Phone Jessica Subramanian NP Primary Care Provider Allergies Active Allergy Reactions Criticality Noted Date Comments Amoxicillin 12/06/2024 Penicillin G 12/06/2024 Medications No known medications Encounters Date Type Department Care Team Description 11/29/2024 Telephone Gastroenterology - [address] [phone] Augustine Wells MD from Last 3 Months Social History Tobacco Use Types Packs/Day Years Used Date Smoking Tobacco: Never Assessed Comments Unknown Sex and Gender Information Value Date Recorded Sex Assigned at Not on file Legal Sex Female 5:35 PM EST Gender Identity Not on file Sexual Orientation Not on file Plan of Treatment Upcoming Encounters Date Type Department Care Team ([facility] Contact Info) Description 02/15/2025 1:00 PM EST Appointment [facility] Endoscopy [address] [place] [phone] Augustine Wells MD [address] [address] Health Maintenance Due Date Last Done Comments [...] AM EDT Narrative 06/25/2023 4:33 PM EDT [facility] Diagnostic Imaging Department [address] [place] [address] Patient: SUKI SAEED /Age/Sex: 1955 - 67 - F Unit#: [id number] Location/Status: SPDIMAM/REG CLI Mnemonic/Ordering Site: [facility] Ordering Physician: JESSICA SUBRAMANIAN BODY COVERER [facility] Screening Digital - 06/25/23 - 24 Report Status:Signed EXAM: [facility] Screening Digital EXAM DATE AND TIME: 06/25/2023 9:25 AM HISTORY: Screening. Mother had breast carcinoma at age 75. COMPARISON: 08/09/21, 07/07/20, 06/10/18 TECHNIQUE: Bilateral digital breast tomosynthesis was performed in the CC and MLO projections. Computer aided detection with [employer] 3D 3.1 was employed. TISSUE DENSITY: b. [...] Procedure Note Malinda Turner MD - 09/29/2023 [facility] Diagnostic Imaging Department [address] [place] [id number] Patient: SUKI SAEED /Age/Sex: 1955 - 67 - F Unit#: [id number] [facility]ing [facility] Ordering Physician: JESSICA SUBRAMANIAN BODY COVERER [facility] Screening Digital - 06/25/23 - 923 Report Status:Signed EXAM: [facility] Screening Digital EXAM DATE AND TIME: 06/25/2023 9:25 AM HISTORY: Screening. Mother had breast carcinoma at age 75. COMPARISON: 08/09/21, 07/07/20, 06/10/18 TECHNIQUE: Bilateral digital breast tomosynthesis was performed in the CCand MLO projections. Computer aided detection with Interactive Fitness 3D 3.1was employed. TISSUE DENSITY: b. There [...] Date Diagnosed Date Autogenerated Problem 12/23/2024 Insurance [employer] [facility] Care Teams Hoist Worker Relationship Specialty Start Date End Date Jessica Sub[place] [address] PCP - General Internal Medicine 11/29/24
--- OUTSIDE RECORDS SUMMARY | 2025-01-25 15:14 | XMS_ITS | Encounter Summary ---
Author Organization [facility] Address [address] [place] [address] Care Team Providers Care Physician Office Specialist Name Role Phone Jessica Subramanian JARRED Primary Care Provider [phone] Encounter Details Date Type Department Care Team (Latest Contact Info) Description 07/01/2024 Lab Requisition [facility] - Main Lab 299 [facility] [place] [address] Estefania Curtis MD 299 [facility] [address] [place] [phone] Encounter for gynecological examination (general) (routine) without [...] Info) Description 02/15/2025 1:00 PM EST Appointment [facility] Endoscopy [address] [place] [address] Augustine Wells MD 299 [facility] [address] [place], [place] [phone] documented as of this encounter Procedures Procedure Name Priority Date/Time Associated Diagnosis Comments PAP SMEAR Routine 06/30/2024 12:00 AM EDT Encounter for gynecological examination (general) (routine) without abnormal findings documented in this encounter Results * Pap smear (06/30/2024 12:00 AM EDT) Interpretation Negative for intraepithelial lesion or malignancy 07/05/2024 6:54 PM EDT [facility] at 1854 EDT General Categorization Negative 07/05/2024 6:54 PM EDT [facility] Other Findings Atrophy 07/05/2024 6:54 PM EDT [facility] Specimen Adequacy Satisfactory for evaluation 07/05/2024 [...] screening system. Technical cytopathology services provided by [facility], at [address] [place] [address] (CLIA # [id number]/Marily Awad MD, Dental Laboratory Worker.) 07/05/2024 6:54 PM EDT [facility] Console Pap Interpretation Reported 07/05/2024 6:54 PM T [facility] Brushing/Spatula Cervix uteri structure / Unknown 06/30/2024 07/01/2024 5:59 AM EDT us Estefania Curtis MD LAB CYTOLOGY ORDERABLES Final Result [facility] [address] [place] [address], [place] [phone] documented in this encounter Visit Diagnoses Diagnosis Encounter for gynecological examination (general) (routine) without abnormal findings documented in this encounter Care Teams Physician Office Specialist Relationship Specialty Start Date End Date Jessica Subramanian NP [address] [place] [address] PCP - General Internal Medicine 11/29/24 documented as of this encounter
== END 2025-01-25 11:32 | disposition home or self-care (01) ==
LOC: HO.US 11:31
PROVIDERS: PCP Nurse Practitioner Family; Visit Provider Nurse Practitioner Family
DX: M54.6 Pain in thoracic spine (principal); R31.9 Hematuria, unspecified; Z87.2 Personal history of diseases of the skin and subcutaneous tissue
CPT/HCPCS: 76770

== ENCOUNTER → 2025-01-25 11:33 | Outpatient (BNV) | payer OTHER, SELFPAY | PROVIDERS: PCP Nurse Practitioner Family; Visit Provider Radiology Diagnostic Radiology | DX: N28.1 Cyst of kidney, acquired (principal) | CPT/HCPCS: 76770 ==

== ENCOUNTER 2025-02-09 14:11 | Outpatient (AMB) | payer OTHER, SELFPAY ==
--- NOTE | 2025-02-09 14:14 | MHC.OFFVIS ---
Vital Signs 02/09/25 14:15 Height 5 ft 4 in Weight 152 lb 1.903 oz BMI 26.1 BP 144/70 H Blood Pressure Location Lt brachial Position Sitting Pulse 63 Intake Visit Reasons: colon screen, fam hx colon ca Intake Note: Sana presents in the office as a new patient colonoscopy screening with a family history colon cancer. CC: Mom from colon cancer - she states that she does not have any stomach pains. Medical Authorization Specialist Required: No Allergies amoxicillin Allergy (Mild, Verified 02/09/25 14:19) Rash morphine Allergy (Mild, Verified 02/09/25 14:19) pking HPI Comments Details: History of Present Illness The patient is a 69 year old female with PMH of newly diagnosed Afib on eliquis presenting for consultation to establish care for a screening colonoscopy. She reports fam hx of CRC in her mother and has hx of numerous colonoscopies at [facility] with Dr Wells. However current insurance wont cover colo at [facility] and so she is seeking care here. Her last colonoscopy was in 2019. The patient reports a significant family history of cancer; her mother from what was believed to be colon cancer, from PCP notes appears she also had breast cancer. Pt not aware of genetic testing in her mother. Additionally, her brother has large colon polyps that require potentially surgical removal. The patient was recently diagnosed with atrial fibrillation approximately one month ago. She currently takes Eliquis 5 mg twice daily and metoprolol 12.5 mg twice daily, but still experiences palpitations. Recent cardiac workup in November included a normal echocardiogram and a normal stress test. She has an upcoming appointment with [facility] fine arts packer on February 21. Pt was informed and consented to the use of ambient scribe for this encounter. PFSH Medical History (Updated 02/09/25 @ 15:11 by Monserrat Tong MD) HTN (hypertension) Hematuria Vitamin D deficiency Migraines Mehta angioma DDD (degenerative disc disease), cervical Varicose vein of leg Surgical History (Updated 02/09/25 @ 14:19 by CECELIA Kumari) Hx of colonoscopy History of esophagogastroduodenoscopy (EGD) Family History (Updated 02/09/25 @ 14:20 by CECELIA Kumari) Mother Colon cancer Brother Colon polyp Review of Systems Narrative Review of Systems - Cardiovascular: Reports ongoing palpitations, described as butterflies in my stomach. Reports dyspnea on walking. - Gastrointestinal: Reports occasional constipation and occasional diarrhea. Denies abdominal pain, nausea, vomiting, or hematochezia. Const All systems reviewed & are unremarkable except as noted in HPI and below Physical Exam Exam Exam: Physical Exam No apparent distress Nonicteric Abdomen soft, nondistended Alert and oriented x3, normal gait Vital Signs: Last Vital Signs Pulse 63 02/09/25 14:15 BP 144/70 H 02/09/25 14:15 BMI result Body Mass Index 26.1 Assessment & Plan Assessment & Plan (1) Family history of colon cancer: Code(s): Z80.0 - Family history of malignant neoplasm of digestive organs Category: Medical (2) Atrial fibrillation: Code(s): I48.91 - Unspecified atrial fibrillation Category: Medical (3) Chronic anticoagulation: Code(s): Z79.01 - detention (current) use of anticoagulants Category: Medical Plan Assessment and Plan 1. Screening Colonoscopy - The patient presents for a screening colonoscopy and has a significant family history of colon cancer in her mother and large polyps in her brother. Plan: - Colonoscopy to be scheduled - Will await cardiology appt prior to booking this. - She already has Gavilyte prep and Dulcolax. - Instructions were provided regarding the clear liquid diet the day prior and the importance of completing the entire prep for optimal visualization. - She was also advised to HOLD eliquis x 2 days prior to colo. Follow up after colo PRN Orders: Referrals GI Procedure Notification Z80.0 - Family history of malignant neoplasm of digestive organs Coding Level of Care Code New Pt Level 4 (73810) Diagnoses Family history of colon cancer Z80.0 Atrial fibrillation I48.91 Chronic anticoagulation Z79.01
[2025-02-09 14:15] VITALS: BP 144/70; PULSE 63; BMI 26.1
--- OUTSIDE RECORDS SUMMARY | 2025-02-09 15:24 | XMS_ITS | Patient Health Record ---
Author Organization [facility] [place] Address [address] [place] [address] Care Team Providers Care Manual Training Teacher Name Role Phone Marilynn STERN, Jessica Primary Care Provider Santana Blakely Unavailable [phone] Allergies Allergen (clinical drug ingredient) Drug/Non Drug Allergy documented on EMR Reaction Allergy Type Onset Date Status amoxicillin Amoxicillin rash Drug Allergy Act ankit morphine Morphine vomiting Drug Allergy Active Reason For Referral No Information Medications Medication SIG (Take, Route, Fr equency, Duration) Notes Start Date End Date Status Ciclopirox 0.77 % 1 application Lamp Shade Sewer ally Twice a day; Duration: 365 days [...] Risk Notes Problem Fungal infection of nail (523277417) Fungal infection of nail (B35.1) Active confirmed Rx management (4) Plan Of Treatment No Information Insurance Providers Payer Name Payer Address Payer Phone Subscriber Number Group Number Insured Name Patient Relationship to Insured Coverage Start Date Coverage End Date Blue Benefits [address] [address] [place] [address] [phone] [id number] Sana Saeed Self - patient is the insured Medical (General) History Medical History History ICD Code Arthritis Back,Hip,and Knee pain covid-19 Headaches/Migraines Sciatica Surgical History Surgery Date(Month/Year) 1989
--- OUTSIDE RECORDS SUMMARY | 2025-02-09 15:24 | XMS_ITS | Encounter Summary ---
Author Organization [facility] Address [address] [place] [address] Care Team Providers Care Soap Drier Operator Name Role Phone [place] JARRED Primary Care Provider [phone] Encounter Details Date Type Department Care Team (Latest Contact Info) Description 07/01/2024 Lab Requisition [facility] - Main Lab [address] [place] [address] Estefania Curtis MD [address] [phone] Encounter for gynecological examination (general) (routine) without [...] lesion or malignancy 07/05/2024 6:54 PM EDT [facility] at 1854 EDT General Categorization Negative 07/05/2024 6:54 PM EDT [facility] Other Findings Atrophy 07/05/2024 6:54 PM [facility] Specimen Adequacy Satisfactory for evaluation 07/05/2024 6:54 PM T [facility] Pap Methodology Liquid Based Pap Test 07/05/2024 6:54 PM EDT [facility] Disclaimer The Pap test is a screening test which carries an inherent false negative rate. These test results should be correlated with the patient's clinical findings and history. This Pap test was processed using an automated screening system. Technical cytopathology services provided by [facility], at [address] [place] [id number] (CLIA # [id number]/Marily Awad MD, [place] [employer].) 07/05/2024 6:54 PM T [facility] Console Pap Interpretation Reported 07/05/2024 6:54 PM [facility] Brushing/Spatula Cervix uteri structure / Unknown 06/30/2024 07/01/2024 5:59 AM EDT us Estefania Curtis MD LAB CYTOLOGY ORDERABLES Final Result Performing Organization Address City/State/[facility] Co de Phone Number [facility] [address] [place] [address], documented in this encounter Visit Diagnoses Diagnosis Encounter for gynecological examination (general) (routine) without abnormal findings documented in this encounter Care Teams Soap Drier Operator Relationship Specialty Start Date End Date Jessica Subramanian NP [address] [facility] [place] [address] PCP - General Internal Medicine 11/29/24 documented as of this encounter
--- OUTSIDE RECORDS SUMMARY | 2025-02-09 15:24 | XMS_ITS | Encounter Summary ---
Author Organization [facility] Address [address] [place] [address] Care Team Providers Care Glazier Helper Name Role Phone Jessica Subramanian NP Primary Care Provider Reason for Visit * Reason Onset Date Comments Anticoagulation 02/07/2025 Elsi 5mg Encounter Details Date Type Department Care Team ([facility] st Contact Info) Description 02/07/2025 Telephone Gastroenterology - [address] [place] [address] [phone] Augustine Wells MD [address] [address] Social History Tobacco Use Types Packs/Day Years Used Date Smoking Tobacco: Never Assessed Comments Unknown Sex and Gender Information Value Date Recorded Sex Assigned at Not on file Legal Sex Female 5:35 PM EST Gender Identity Not on file Sexual Orientation Not on file documented as of this encounter Progress Notes * Alice Wynn MA - 02/08/2025 9:18 AM EST Patient cancelled procedure, will have performed at [facility]. ARINA * Alice Wynn MA - 02/07/2025 9:29 AM EST Reached out to patient's PCP ([phone]) to see if they can advise who patient sees for cardiology/advise if ok to hold Eliquis 2 days prior to procedure on 02/15/25. ARINA * Alice Wynn MA - 02/07/2025 9:20 AM EST Patient is scheduled for colonoscopy with Dr. Wells on 02/15/25. Patient advised scheduling that she is on Eliquis 5mg, not in records we received. Left voicemail for patient to call office to advise who prescribes this medication, how long has she been on it. K documented in this encounter Plan of Treatment Not on file documented as of this encounter Visit Diagnoses Not on filedocumented in this encounter Care Teams Glazier Helper Relationship Specialty Start Date End Date Jessica Subramanian NP [address] [place] [address] PCP - General Internal Medicine 11/29/24 documented as of this encounter
--- OUTSIDE RECORDS SUMMARY | 2025-02-09 15:24 | XMS_ITS | Encounter Summary ---
Author Organization [facility] Address [address] [place] [address] Care Team Providers Care Enterostomal Therapy Nurse Name Role Phone Jessica Subramanian NP Primary Care Provider [phone] Reason for Visit * Reason Onset Date Comments special procedure 02/07/2025 Encounter Details Date Type Department Care Team ([facility] st Contact Info) Description 02/07/2025 Telephone Gastroenterology - [address] [phone] Augustine Wells MD [address] [address] Social History Tobacco Use Types Packs/Day Years Used Date Smoking Tobacco: Never Assessed Comments Unknown Sex and Gender Information Value Date Recorded Sex Assigned at Not on file Legal Sex Female 5:35 PM EST Gender Identity Not on file Sexual Orientation Not on file documented as of this encounter Progress Notes * Shailesh Pool - 02/07/2025 10:29 AM EST Cx * Rosa Maria Avalos - 02/07/2025 9:43 AM EST Patient is calling to cancel her colonoscopy on 02/15/25 She is having it done at [facility] instead due to ins reasons documented in this encounter Plan of Treatment Not on file documented as of this encounter Visit Diagnoses Not on filedocumented in this encounter Care Teams Enterostomal Therapy Nurse Relationship Specialty Start Date End Date Jessica Subramanian NP [address] [place] [address] PCP - General Internal Medicine 11/29/24 documented as of this encounter
--- OUTSIDE RECORDS SUMMARY | 2025-02-09 15:24 | XMS_ITS | Clinical Summary ---
Author Organization [address] Address [address] [place] [phone] Phone Care Team Providers Care Doughnut Icer Machine Name Role Phone Jessica Subramanian NP Primary Care Provider [phone] Allergies Active Allergy Reactions Criticality Noted Date Comments Amoxicillin Rash Medium 12/06/2024 Penicillin G Rash Medium 12/06/2024 Medications polyethylene glycol (Golytely) 236-22.74-6.74 -5.86 gram solution Take 4L by mouth once for one dose. May substitue any PEG. Starting at 2PM the day before your procedure drink 1 8oz glasses at your own pace until you complete half of the gallon. Finish 2nd half of the gallon at 8PM. 4000 mL 5 Active bisacodyL (DULCOLAX) 5 mg EC tablet Take 2 tablets by mouth right before beginning bowel prep. See instructions provided by the office 2 tablet 5 Active Eliquis 5 mg tablet 5 Active metoprolol tartrate (LOPRESSOR) 25 mg tablet 5 Active Encounters Date Type Department Care Team Description 02/07/2025 Telephone Gastroenterology - [address] [place] [phone] Augustine Wells MD 02/07/2025 Telephone Gastroenterology - [address] [place] [phone] Augustine Wells MD 11/29/2024 Telephone Gastroenterology - 299 [place] [address] [facility] [address] [place] [address] Augustine Wells MD from Last 3 Months Social History Tobacco Use Types Packs/Day Years Used Date Smoking Tobacco: Never Assessed Comments Unknown Sex and Gender Information Value Date Recorded Sex Assigned at Not on file Legal Sex Female 5:35 PM EST Gender Identity Not on file Sexual Orientation Not on file Last Filed Vital Signs Vital Sign Reading Time Taken Comments Blood Pressure - - Pulse - - Temperature - - Respiratory Rate - - Oxygen Saturation - - Inhaled Oxygen Concentration - - Weight 68.5 kg (151 lb) 02/07/2025 8:00 AM EST Height 162.6 cm (5' 4 ) 02/07/2025 8:00 AM EST Body Mass Index 25.92 02/07/2025 8:00 AM EST Plan of Treatment Health Maintenance Due Date [...] Procedure Name Priority Date/Time Associated Diagnosis Comments [facility] SCREENING [facility]IG[facility] Routine 06/25/2023 4:33 PM EDT Encounter for screening mammogram for malignant neoplasm of breast from Last 3 Months or Most Recently Relevant to Health Maintenance Results * [facility] SCREENING [facility]IG[facility] (06/25/2023 4:33 PM EDT) Anatomical Region Laterality Modality Mammography 06/25/2023 9:08 AM EDT Narrative 06/25/2023 4:33 PM EDT [facility] Diagnostic Imaging Department [address] [place] [address] Patient: TAMIRSUKI /Age/Sex: 1955 - 67 - F Unit#: [id number] [facility] Ordering Physician: JESSICA SUBRAMANIAN SERVICE STATION CONSOLE OPERATOR Michelet Screening Digital - 06/25/23923 Report Status:Signed EXAM: [facility] Screening Digital EXAM DATE AND TIME: 06/25/2023 9:25 AM HISTORY: Screening. Mother had breast carcinoma at age 75. COMPARISON: 08/09/21, 07/07/20, 06/10/18 TECHNIQUE: Bilateral digital breast tomosynthesis was performed in the CC and MLO projections. Computer aided detection with [employer] 3D 3.1 was employed. TISSUE DENSITY: b. [...] [facility] Diagnostic Imaging Department [address] [place] [address] Patient: SUKI SAEED./Age/Sex: 1955 - 67 - F Unit#: [id number] Location/Status: SPDIMAM/REG CLI Mnemonic/Ordering Site: [facility] Ordering Physician: JESSICA SUBRAMANIAN SERVICE STATION CONSOLE OPERATOR Michelet Screening Digital - 06/25/23 - 0924 Report Status:Signed EXAM: [facility] Screening Digital EXAM DATE AND TIME: 06/25/2023 9:25 AM HISTORY: Screening. Mother had breast carcinoma at age 75. COMPARISON: 08/09/21, 07/07/20, 06/10/18 TECHNIQUE: Bilateral digital breast tomosynthesis was performed in the CCand MLO projections. Computer aided detection with [employer] 3D 3.1was employed. TISSUE DENSITY: b. There [...] Sign date/Time: 06/25/23 1633 Jessica Subramanian NP IM BI PROCEDURES Final Resul t from Last 3 Months or Most Recently Relevant to Health Maintenance Insurance [facility] Care Teams Doughnut Icer Machine Relationship Specialty Start Date End Date Jessica Subramanian NP [address] [place] [address] PCP - General Internal Medicine 11/29/24
== END 2025-02-09 14:43 | disposition home or self-care (01) ==
PROVIDERS: PCP Nurse Practitioner Family; Visit Provider Internal Medicine
DX: Z80.0 Family history of malignant neoplasm of digestive organs (principal); I48.91 Unspecified atrial fibrillation; Z79.01 Long term (current) use of anticoagulants
CPT/HCPCS: 99204